=== PATIENT | male | born 1965 | race Caucasian/White ===

== ENCOUNTER 2023-05-21 15:58 | Emergency (ER) | payer OTHER | END 2023-05-21 19:55 | disposition home or self-care (01) | LOC: JD.ED 15:58 | DX: S86.011A Strain of right Achilles tendon, initial encounter (principal); F17.210 Nicotine dependence, cigarettes, uncomplicated; W18.40XA Slipping, tripping and stumbling without falling, unspecified, initial encounter | CPT/HCPCS: 73610-26-RT; 73610-RT; 73630-26-RT; 73630-RT; 76881-26-RT; 76881-RT; 99283 ==